=== PATIENT | male | born 1960 | race Caucasian/White ===

== ENCOUNTER → 2017-10-14 | Outpatient (CLI) | payer OTHER ==
[~2017-10-14] MED LIST: PRLSR20 PO; RANI150T3 PO
[2017-10-14 12:11] LABS: BASO % 0.6 %; BASO ABS # 0.03 K/uL (0-0.2); EOS % 4.8 %; EOS ABS # 0.23 K/uL (0-0.5); HEMATOCRIT 50.8 % (42-52); IG# 0.01 K/uL (0.00-0.02); LYMPH % 33.8 %; LYMPH ABS # 1.63 K/uL (1.2-3.4); MEAN CELL VOLUME 107.2 fL (80-100); MEAN CORPUSCULAR HGB CONC 35.4 g/dl (32-36); MEAN PLATELET VOLUME 9.7 fL (7.4-10.4); MONO % 11.2 %; MONO ABS # 0.54 K/uL (0.11-0.59); NEUT % 49.4 %; NEUT ABS # 2.38 K/uL (1.4-6.5); PLATELET COUNT 281 K/uL (130-400); RED CELL DISTRIBUTION WIDTH CV 14.1 % (11.5-14.5); RED CELL DISTRIBUTION WIDTH SD 55.8 fL (36.4-46.3); WHITE BLOOD COUNT 4.82 K/uL (4.8-10.8)
[2017-10-14 12:31] LABS: ALBUMIN 3.6 gm/dl (3.4-5.0); ALT/SGPT 32 U/L (12-78); AST/SGOT 27 U/L (15-37); BLOOD UREA NITROGEN 6 mg/dl (7-18); CALCIUM 9.1 mg/dl (8.5-10.1); CARBON DIOXIDE 27 mmol/L (21-32); CREATININE 0.81 mg/dl (0.60-1.40); GLUCOSE 85 mg/dl (70-99); POTASSIUM 3.9 mmol/L (3.5-5.1); SODIUM 134 mmol/L (136-145)
[2017-10-14 12:36] LABS: ALKALINE PHOSPHATASE 81 U/L (45-117); CHOLESTEROL 182 mg/dl (0-200); LDL CHOLESTEROL CALCULATED 98 mg/dl; TOTAL PROTEIN 7.7 gm/dl (6.4-8.2)
== END | disposition home or self-care (01) ==
LOC: C.LABBFT 07:29
PROVIDERS: ATTEND Nurse Practitioner
DX: Z13.220 Encounter for screening for lipoid disorders (principal); K21.9 Gastro-esophageal reflux disease without esophagitis; D53.9 Nutritional anemia, unspecified; Z12.5 Encounter for screening for malignant neoplasm of prostate

== ENCOUNTER 2023-10-26 16:46 | Observation (INO) ==
--- NOTE | 2023-10-26 16:57 | ED Triage Note ---
Date of Service October 26, 2023 Provider in Triage Author: Raine Mejias History of Present Illness This patient was briefly evaluated while in triage. An abbreviated physical exam was performed. This patient is a 63-year-old Male who presents to the ED for evaluation of left foot wound. Reports wound on bottom on foot for last 3 weeks, unsure how he got the wound. Thought fungal and was using cream without resolution. Eval by PCP and referred here. Notes redness, warmth, swelling, drainage. Denies fevers. Denies h/o DM, he is a smoker. No recent abx. Physical Exam Constitutional: alert and oriented x3. no acute distress. HEENT: normocephalic, atraumatic. normal conjunctiva.PERRLA. EOM's grossly intact. Respiratory: equal chest rise. normal respiratory effort, no accessory muscle use. Cardiovascular: normal heart sounds without murmur. regular rate and rhythm. MSK: moves all 4 extremities spontaneously Psych:appropriate mood and affect. Initial orders for labs and / or imaging were placed and patient was placed in the waiting area until a bed is available. Please see further documentation for the full ED course.
--- NOTE | 2023-10-26 17:40 | XRay Report ---
XR foot LT min 3V routine CLINICAL HISTORY: plantar wound TECHNIQUE: 3 views of the left foot were obtained. Comparison: None available at the time of this dictation. FINDINGS: No fractures are present. The joint spaces are well preserved. Soft tissue swelling is seen about the foot. IMPRESSION: Soft tissue swelling without erosions to suggest osteomyelitis. ACT 112: Negative or not required by law. Electronically signed by: Collin Bush M.D. 10/26/2023 5:39 PM
[2023-10-26 17:50] LABS: Basophils # (auto) 0.03 K/uL (0.00-0.20); Basophils % (auto) 0.4 %; Eosinophils # (auto) 0.16 K/uL (0.00-0.50); Eosinophils % (auto) 2.2 %; Hematocrit (blood only) 43.8 % (42.0-52.0); Hemoglobin 14.7 g/dl (14.0-18.0); Immature Granulocytes # (auto) 0.01 K/uL (0.01-0.20); Immature Granulocytes % (auto) 0.1 %; Lymphocytes # (auto) 1.76 K/uL (1.20-3.40); Lymphocytes % (auto) 24.3 %; Mean Corpuscular Hemoglobin 34.6 pg (25.0-34.0); Mean Corpuscular Hgb Conc 33.6 g/dL (32.0-36.0); Mean Corpuscular Volume 103.1 fL (80.0-100.0); Mean Platelet Volume 9.1 fL (9.4-12.4); Monocytes % (auto) 8.3 %; Neutrophils # (auto) 4.69 K/uL (1.40-6.50); Neutrophils % (auto) 64.7 %; Platelet Count 345 K/uL (130-400); RDW Standard Deviation 53.7 fL (36.4-46.3); Red Blood Count 4.25 M/uL (4.70-6.10); White Blood Count 7.25 K/ul (4.8-10.8)
[2023-10-26 18:09] LABS: BUN Creatinine Ratio 12.9 (10-20); C Reactive Protein 1.13 mg/dl (0-0.5); Calcium 9.4 mg/dl (8.6-10.3); Creatinine Clr Calc Pharmacy 91.1 ml/min; Est GFR (African American) 108.2 ml/min; Est GFR (Non-African American) 93.4 ml/min
[2023-10-26] MEDS ORDERED: VANCOMYCIN CONSULT ACTIVE PRN ×3 (18:30→21:16)
--- NOTE | 2023-10-26 18:30 | Emergency Department Note ---
History of Present Illness General Chief complaint: Referred by Doctor Time Seen by Provider: 10/26/23 18:19 History of Present Illness Maximum Pain Intensity: 10 63-year-old male presents emergency department with referral by his physician for a foot infection. 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 Patient states the past week it started itching the area he did put powder to the plantar surface and it started to drain and smell. Patient is not a diabetic. Patient did go to his primary care physician's office today's and noticed that it being and was sent for further evaluation for foot infection. Patient denies fever states some swelling of his left ankle. There are no other complaints. He is not currently on antibiotics. There are no other mitigating or alleviating factors. There is no trauma. Home Medications Medication Instructions Recorded Confirmed Type aspirin 81 mg tablet,delayed 81 mg PO DAILY 05/29/19 10/04/23 History release (Adult Low Dose Aspirin) atorvastatin 80 mg tablet 80 mg PO HS #90 tabs 05/04/23 10/04/23 Rx losartan 100 mg tablet 100 mg PO DAILY #30 tabs 05/04/23 10/04/23 Rx pantoprazole 40 mg tablet,delayed 40 mg PO DAILY #30 tabs 05/27/23 10/04/23 Rx release metoprolol succinate 50 mg 50 mg PO DAILY #30 tabs 06/07/23 10/04/23 Rx tablet,extended release 24 hr clopidogrel 75 mg tablet (Plavix) 75 mg PO DAILY #30 tabs 07/05/23 10/04/23 Rx Allergies Allergy/AdvReac Type Severity Reaction Status Date / Time No Known Allergies Allergy Unknown Verified 10/26/23 15:32 Past Med/Surg History Medical History Dyslipidemia CVA (cerebral vascular accident) Surgical History H/O hand surgery Family History Mother Hypertension Father Cerebral aneurysm Denies family history of Ovarian cancer Prostate cancer Myocardial infarction Breast cancer Colorectal cancer Social History Smoking Status: Current every day smoker Tobacco Type: Cigarettes Cigarettes Per Day: 20; Second Hand Exposure: Yes; Do You Dip or Chew Tobacco: No; Hx Alcohol Use: Yes Alcohol type: wine Alcohol Intake Frequency: 4 or More x per/Week Alcohol Intake Frequency Comment: red wine daily Hx Substance Use: No Preferred Language: Tajik Communication Ability: Effective Visual Impairment: No Limitations Hearing Ability: Normal Computer Help Desk Representative Required: No marital status: Current Living Situation: Spouse current occupational status: employed 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 Feels Safe at Home: Yes Childhood Exposure to Second-Hand Smoke: No Diet: regular caffeine: Yes Dental Care, Regularly: No Physical Activity Frequency: 5-6 Times per Week Physical Activity Frequency Comment: Physical occupation Seatbelt Use: always Sunscreen Use: No Assistive Devices: Glasses Review of Systems A total of 10 systems reviewed and were otherwise negative Musculoskeletal: + joint pain and + swelling Integumentary: + rash Physical Exam Vital Signs Vital Signs - 24 hr 10/26/23 16:52 Temperature 36.2 C L Temperature Source Temporal Artery Scan Pulse Rate 82 Respiratory Rate 14 Blood Pressure 150/84 H Blood Pressure Mean 106 Pulse Oximetry 97 Oxygen Delivery Method Room Air Sepsis New/Unexplained Change in Mental Status No Sepsis Action Taken by Nursing No Action Required GENERAL: Patient is awake alert in no acute distress patient is resting comfortably and showing no signs of anxiety EYES: The conjunctivae are clear. The pupils are round and reactive. EARS, NOSE, MOUTH AND THROAT: The nose is without any evidence of any deformity. Mucous membranes are moist. Tongue is midline. NECK: The neck is nontender and supple. RESPIRATORY: Normal respiratory effort is noted there is no evidence of wheezing rhonchi or rales CARDIOVASCULAR: Regular rate and rhythm noted there no murmurs rubs or gallops normal S1 normal S2. GASTROINTESTINAL: The abdomen is soft. Abdomen is nontender. BACK: No midline tenderness or or step-off noted range of motion in flexion extension as well as rotation no signs of muscle spasm noted MUSCULOSKELETAL/EXTREMITIES: There is no evidence of gross deformity full range of motion is noted in the hips and shoulders. Left lower extremity and foot exam as noted in the skin exam. Patient is neurovascularly intact distally the right foot and right lower extremity is normal in size SKIN: Left foot plantar surface there is a large area of open wound that is weeping and foul-smelling. There is edema to the foot and ankle with mild lymphangitis proximally. There are no petechiae, pallor or cyanosis noted. NEUROLOGIC: Patient is awake alert and oriented x3 strength is symmetric Course Reevaluation(s) Reevaluation #1: Patient was started on IV antibiotics. Time: 18:55 Consultations Consultation #1: Case was discussed with the [facility] Hospitalist for admission Time: 18:45 Medical Decision Making Medical Records Attestation: I reviewed the patient's medical records. Home Medications Current Medication List: was personally reviewed by me Laboratory Data Attestation: I reviewed the patient's lab results. Labs interpreted by me are unremarkable 10/26/23 17:22 10/26/23 17:22 Lab Results 10/26/23 Range/Units 17:22 WBC 7.25 (4.8-10.8) K/ul RBC 4.25 L (4.70-6.10) M/uL Hgb 14.7 (14.0-18.0) g/dl Hct 43.8 (42.0-52.0) % MCV 103.1 H (80.0-100.0) fL MCH 34.6 H (25.0-34.0) pg MCHC 33.6 (32.0-36.0) g/dL RDW Std Deviation 53.7 H (36.4-46.3) fL RDW Coeff of Félix 14.0 (11.5-14.5) % Plt Count 345 (130-400) K/uL MPV 9.1 L (9.4-12.4) fL Immature Gran % (Auto) 0.1 % Neut % (Auto) 64.7 % Lymph % (Auto) 24.3 % [place] % (Auto) 8.3 % Eos % (Auto) 2.2 % Baso % (Auto) 0.4 % Neut # (Auto) 4.69 (1.40-6.50) K/uL Lymph # (Auto) 1.76 (1.20-3.40) K/uL [place] # (Auto) 0.60 H (0.11-0.59) K/uL Eos # (Auto) 0.16 (0.00-0.50) K/uL Baso # (Auto) 0.03 (0.00-0.20) K/uL Immature Gran # (Auto) 0.01 (0.01-0.20) K/uL ESR 38 H (0-20) mm/hr Sodium 138 (136-145) mmol/L Potassium 4.0 (3.5-5.1) mmol/L Chloride 104 (98-107) mmol/L Carbon Dioxide 28 (21-32) mmol/L Anion Gap 6 (3-11) BUN 11 (6-23) mg/dl Creatinine 0.85 (0.6-1.4) mg/dl Est Cr Clr Drug Dosing 91.1 ml/min Est GFR ( Amer) 108.2 ml/min Est GFR (Non-Af Amer) 93.4 ml/min BUN/Creatinine Ratio 12.9 (10-20) Glucose 99 (70-99(Fasting)) mg/dl Calcium 9.4 (8.6-10.3) mg/dl C-Reactive Protein 1.13 H (0-0.5) mg/dl Imaging Data My Impression: Left foot x-rays interpreted by me negative for fracture or osteomyelitis Radiologist's Impression: Foot X-Ray 10/26/23 16:57 XR foot LT min 3V routine CLINICAL HISTORY: plantar wound TECHNIQUE: 3 views of the left foot were obtained. Comparison: None available at the time of this dictation. FINDINGS: No fractures are present. The joint spaces are well preserved. Soft tissue swelling is seen about the foot. IMPRESSION: Soft tissue swelling without erosions to suggest osteomyelitis. ACT 112: Negative or not required by law. Electronically signed by: Collin Bush M.D. 10/26/2023 5:39 PM MDM Narrative Medical decision making differential diagnosis includes foot ulcer, foot infection, cellulitis, osteomyelitis Plan is to check labs, foot x-rays, these labs were started and the provider in triage process Patient was found to have a foot infection on my examination, patient was started on IV antibiotics Case was discussed with the [facility] hospitalist for admission for foot infection and cellulitis Impression & Plan Left foot infection Discharge Plan Visit Data Chief Complaint: Referred by Doctor ED Provider: Royer Jacobs Discharge Problem: Left foot infection Patient Disposition: Admitted As Inpatient Forms Stand Alone Forms: [facility] Prescriptions Prescriptions: No Action aspirin [Adult Low Dose Aspirin] 81 mg tablet,delayed release (DR/EC) 81 mg PO DAILY losartan 100 mg tablet 100 mg PO DAILY Qty: 30 11RF atorvastatin 80 mg tablet 80 mg PO HS Qty: 90 3RF pantoprazole 40 mg tablet,delayed release (DR/EC) 40 mg PO DAILY Qty: 30 11RF metoprolol succinate 50 mg tablet extended release 24 hr 50 mg PO DAILY Qty: 30 11RF clopidogrel [Plavix] 75 mg tablet 75 mg PO DAILY Qty: 30 11RF Referrals Referrals: Chelsea Reddy CRNP [Primary Care Provider] -
--- NOTE | 2023-10-26 18:49 | History & Physical Report ---
Date of Service October 26, 2023 Assessment & Plan (1) Left foot infection: Plan: Worsening infection/pain on the sole of the left foot x 3.5 weeks No leukocytosis; afebrile Left foot x-ray revealed soft tissue swelling without erosions to suggest osteomyelitis ESR elevated at 38; CRP elevated at 1.13 Procalcitonin WNL Blood cultures ordered, pending IV Vancomycin + Rocephin with transition to oral abx Continue vancomycin at 15mg/kg IV q12h Follow blood cx Daily wound care Wound care nurse consulted Acetaminophen 650mg p.o. q6h as needed for pain 1-3 Dilaudid 0.5-1.0mg IV q4h as needed for breakthrough pain A.m. CBC, BMP, CRP (2) Hypertension: Plan: Continue metoprolol, losartan (3) Dyslipidemia: Plan: Continue atorvastatin (4) Acid reflux: Plan: Continue pantoprazole (5) Tobacco use: Plan: Current everyday tobacco cigarette smoker; 1 PPD Patient declines nicotine patch while inpatient (6) Alcohol use: Plan: Patient reports that he drinks 3-4 glasses of wine per day; last drink the evening of 10/24 He denies hx of of alcohol withdrawal or seizures Plan Disposition: Obs -admit to [facility] Full code Regular diet VTE PPx: Lovenox 40 mg SQ q24h History of Present Illness Chief Complaint: Left foot pain/infection Primary Care Provider: VALE Wang Timur is a pleasant 63-year-old male with PMH of dyslipidemia, HTN, tobacco use, alcohol use, GERD, and macrocytic anemia. Presented for a worsening left foot pain/infection on the sole of his foot x 3.5 weeks. He rates the pain 10/10 at present, and characterizes it as a "burning, throbbing" pain that is constant. 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 Patient reports he has been applying a tinactin cream and powder to his foot without relief. He also notes that there has been increased swelling and erythema over the past week. He is not taking any additional pain medications. No recent change in medications, but he does note that he only took his heartburn medication this morning. He does note he had a recent stomach flu 3-4 weeks ago, but symptoms have resolved. Patient is mildly hypertensive at 150/84 at time of admission; vitals otherwise stable. ED course: Vancomycin 1750 mg IV Rocephin 2000 mg IV ROS: Patient endorses burning pain in the sole of his left foot. Patient denies fever, chills, night sweats, dizziness, lightheadedness, MANZO, chest pain, SOB, abdominal pain, recent N/V/D, urinary symptoms, burning with urination, blood in the urine or stool, or numbness/tingling in lower extremities bilaterally. Allergies Allergy/AdvReac Type Severity Reaction Status Date / Time No Known Allergies Allergy Unknown Verified 10/26/23 18:59 Home Medications Medication Instructions Recorded Confirmed Type aspirin 81 mg tablet,delayed 81 mg PO DAILY 05/29/19 10/26/23 History release (Adult Low Dose Aspirin) atorvastatin 80 mg tablet 80 mg PO HS #90 tabs 05/04/23 10/26/23 Rx losartan 100 mg tablet 100 mg PO DAILY #30 tabs 05/04/23 10/26/23 Rx pantoprazole 40 mg tablet,delayed 40 mg PO DAILY #30 tabs 05/27/23 10/26/23 Rx release metoprolol succinate 50 mg 50 mg PO DAILY #30 tabs 06/07/23 10/26/23 Rx tablet,extended release 24 hr clopidogrel 75 mg tablet (Plavix) 75 mg PO DAILY #30 tabs 07/05/23 10/26/23 Rx Past Med/Surg History Medical History (Updated 10/26/23 @ 19:16 by Damian Ruano PA-C) Alcohol use Tobacco use Dyslipidemia CVA (cerebral vascular accident) Surgical History H/O hand surgery Family History Mother Hypertension Father Cerebral aneurysm Denies family history of Ovarian cancer Prostate cancer Myocardial infarction Breast cancer Colorectal cancer Social History Smoking Status: Current every day smoker Tobacco Type: Cigarettes Cigarettes Per Day: 1 pack; Second Hand Exposure: No; Do You Dip or Chew Tobacco: No; Tobacco Cessation Education Requested by Patient: No Hx Alcohol Use: Yes Alcohol type: wine Alcohol Intake Frequency: 4 or More x per/Week Alcohol Intake Frequency Comment: red wine daily Hx Substance Use: No Preferred Language: Honduran Communication Ability: Effective Visual Impairment: No Limitations Hearing Ability: Normal Scout Executive Required: No Beliefs That Will Affect Care: None marital status: Current Living Situation: Spouse current occupational status: employed 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 Other Information That Helps Us Care for You: No Feels Safe at Home: Yes Safety Concerns: Feels Safe At This Time Childhood Exposure to Second-Hand Smoke: No Diet: regular caffeine: Yes Dental Care, Regularly: No Physical Activity Frequency: 5-6 Times per Week Physical Activity Frequency Comment: Physical occupation Seatbelt Use: always Sunscreen Use: No Assistive Devices: None Review of Systems 2 Review of Systems: See HPI above Physical Exam 2 Physical Exam: General: Moderate physical distress secondary to left foot pain; pleasant affect; non-toxic appearing; well-nourished; cooperative; SpO2 97% on RA HEENT: normocephalic, atraumatic; no scleral icterus; PERRLA; vision and hearing grossly intact Neck: supple; no lymphadenopathy; trachea midline Skin: warm, dry without signs of tenting; no cyanosis; no rashes, bruising, lesions, or erythema noted CV: chest wall NTP; RRR; S1/S2 normal; no murmurs/rubs/gallops; pulses intact and symmetric at radial, DP, and PT Lungs: no acute respiratory distress; symmetrical chest wall expansion; clear breath sounds across all lung freitas w/o adventitious sounds; no wheezing ABD: Soft, NTP; BS present Left foot: Malodorous, with purulent drainage from the sole of the foot and toes; dorsal aspect of foot is warm to touch (see photo below) MSK: no tics or fasciculations; no edema noted in the LEs b/l, nonerythematous Neuro: A&Ox3; normal mood and affect; fluent speech; no focal deficits; sensation grossly intact in the LEs b/l Results & Data Results & Data Vital Signs (Past 12 Hours) Vital Signs Temp Pulse Resp BP Pulse Ox O2 Del Method 10/26/23 16:52 36.2 C L 82 14 150/84 H 97 Room Air Laboratory Results Abnormal lab results 10/26/23 Range/Units 17:22 RBC 4.25 L (4.70-6.10) M/uL MCV 103.1 H (80.0-100.0) fL MCH 34.6 H (25.0-34.0) pg RDW Std Deviation 53.7 H (36.4-46.3) fL MPV 9.1 L (9.4-12.4) fL [place] # (Auto) 0.60 H (0.11-0.59) K/uL ESR 38 H (0-20) mm/hr C-Reactive Protein 1.13 H (0-0.5) mg/dl Diagnostic Findings Foot X-Ray 10/26/23 16:57 XR foot LT min 3V routine CLINICAL HISTORY: plantar wound TECHNIQUE: 3 views of the left foot were obtained. Comparison: None available at the time of this dictation. FINDINGS: No fractures are present. The joint spaces are well preserved. Soft tissue swelling is seen about the foot. IMPRESSION: Soft tissue swelling without erosions to suggest osteomyelitis. ACT 112: Negative or not required by law. Electronically signed by: Collin Bush M.D. 10/26/2023 5:39 PM Code Status & VTE Plan Code Status Full code VTE Prophylaxis Plan VTE Prophylaxis will be ordered: Yes Supervising Physician Co-Signing Physician Notes I personally saw and examined the patient. I independently reviewed the labs, imaging, problem list, medication list, past medical history and family history. I verified all adams points and agree with Damian Ruano PA-C with the following exceptions and/or additions: 63 year old male presents to the ER with left foot infection getting progressively worse over the last 3 weeks with severe 10/10 pain O/E HS RRR, no murmurs, Chest CTAB, Abdo SNT, erythema and swelling surrounding skin break down on sole of left foot A/P Left foot cellulitis - Vancomycin + ceftriaxone, follow up blood cultures, consult podiatry and wound care. Appearance is somewhat fungal and will defer to podiatry regarding best care for this PG Care Time/CCT Total # of Minutes Spent Total Time Spent with Patient: Total time spent is greater than 50% in coordination of care (as documented) at patient's floor/unit and/or counseling patient: Coding [place] [address] INT INP/OBS CARE 2/55MIN Patient Type Established Medical Decision Making Moderate Complexity Diagnoses Left foot infection L08.9 Hypertension I10 Dyslipidemia E78.5 Acid reflux K21.9 Tobacco use Z72.0 Alcohol use Z78.9
[2023-10-26] MEDS: cefTRIAXone SODIUM 2,000 MG/50 ML BAG IV STA (19:24)
[2023-10-26] MEDS: ACETAMINOPHEN 325 MG TAB PO STA (19:25)
[2023-10-26] MEDS: VANCOMYCIN HCL 1,750 MG in SODIUM CHLORIDE 0.9% 500 ML IV ONE (20:32)
[2023-10-26] MEDS ORDERED: ACETAMINOPHEN 325 MG TAB PO PRN (21:16)
[2023-10-26] MEDS: HYDROmorphone INJ 1 MG/ML SYRINGE IV PRN (21:34)
--- NOTE | 2023-10-26 21:34 | Pharmacy Report ---
Pharmacy PK ABX Note - Date of Service October 26, 2023 - Assessment and Plan Assessment 63 year old M receiving vancomycin for treatment of L foot cellulitis. Pertinent microbiologic data includes: blood cultures pending Plan Vancomycin * Loading dose: 1750 mg IV x 1 * Maintenance dose: 1000 mg IV every 12 hours * Regimen is predicted to achieve target AUC/ALEISHA of 400-600 mg/L.hr * Random level ordered for: 10/27 AM Pharmacy will continue to follow and will adjust dose/frequency as necessary. Thank you. Pharmacy has transitioned to AUC monitoring for vancomycin. AUC/ALEISHA is the preferred PK/PD target and is associated with decreased risk of nephrotoxicity compared to traditional trough targets.
[2023-10-26] MEDS: ENOXAPARIN INJ 40 MG/0.4 ML SYR SQ SCH (22:10)
[2023-10-26] MEDS: ATORVASTATIN 40 MG TAB PO SCH (22:10)
[2023-10-27] MEDS: HYDROmorphone INJ 0.5 MG/0.5 ML SYR IV PRN (05:36)
[2023-10-27 06:16] LABS: Basophils # (auto) 0.03 K/uL (0.00-0.20); Basophils % (auto) 0.4 %; Eosinophils # (auto) 0.21 K/uL (0.00-0.50); Eosinophils % (auto) 3.1 %; Hematocrit (blood only) 44.6 % (42.0-52.0); Immature Granulocytes # (auto) 0.02 K/uL (0.01-0.20); Immature Granulocytes % (auto) 0.3 %; Lymphocytes # (auto) 1.91 K/uL (1.20-3.40); Lymphocytes % (auto) 28.2 %; Mean Corpuscular Hemoglobin 34.5 pg (25.0-34.0); Mean Corpuscular Hgb Conc 33.6 g/dL (32.0-36.0); Mean Corpuscular Volume 102.5 fL (80.0-100.0); Mean Platelet Volume 9.2 fL (9.4-12.4); Monocytes % (auto) 8.9 %; Neutrophils % (auto) 59.1 %; Platelet Count 332 K/uL (130-400); RDW Coefficient of Variation 13.8 % (11.5-14.5); RDW Standard Deviation 52.6 fL (36.4-46.3); Red Blood Count 4.35 M/uL (4.70-6.10); White Blood Count 6.77 K/ul (4.8-10.8)
[2023-10-27 06:30] LABS: BUN Creatinine Ratio 12.7 (10-20); C Reactive Protein 0.94 mg/dl (0-0.5); Calcium 9.1 mg/dl (8.6-10.3); Creatinine Clr Calc Pharmacy 106.9 ml/min; Est GFR (African American) 116.5 ml/min; Est GFR (Non-African American) 100.6 ml/min; Potassium 4.1 mmol/L (3.5-5.1)
[2023-10-27] MEDS ORDERED: VANCOMYCIN HCL 1,250 MG in SODIUM CHLORIDE 0.9% 500 ML IV SCH (08:00)
[2023-10-27] MEDS: PANTOprazole 40 MG TAB PO SCH (08:38)
[2023-10-27] MEDS: METOPROLOL SUCC 50MG EXT REL TAB PO SCH (08:38)
[2023-10-27] MEDS: LOSARTAN POTASSIUM 50 MG TAB PO SCH (08:39)
[2023-10-27] MEDS: CLOPIDOGREL BISULFATE 75 MG TAB PO SCH (08:39)
[2023-10-27] MEDS: VANCOMYCIN HCL 1,000 MG in SODIUM CHLORIDE 0.9% 250 ML IV SCH (08:41)
[2023-10-27] MEDS ORDERED: ASPIRIN 81 MG ECTAB PO SCH (09:00)
--- NOTE | 2023-10-27 09:47 | Pharmacy Report ---
Pharmacy PK ABX Note - Date of Service October 27, 2023 - Assessment and Plan Assessment : Serum creatinine slightly improved today, [employer] predicting low in goal range and with uncertainty that dosing will be therapeutic. Will increase dose slightly for better probability of goal range attainment. Continue with level tomorrow AM to aide with dosing. 10/25: 63 year old M receiving vancomycin for treatment of L foot cellulitis. Pertinent microbiologic data includes: blood cultures pending Plan Vancomycin * Loading dose: 1750 mg IV x 1 * Maintenance dose: increase to 1200 mg IV every 12 hours * Regimen is predicted to achieve target AUC/ALEISHA of 400-600 mg/L.hr * Random level ordered for: 10/27 AM Pharmacy will continue to follow and will adjust dose/frequency as necessary. Thank you. Pharmacy has transitioned to AUC monitoring for vancomycin. AUC/ALEISHA is the preferred PK/PD target and is associated with decreased risk of nephrotoxicity compared to traditional trough targets.
--- NOTE | 2023-10-27 15:28 | Hospitalist Progress Note ---
Date of Service October 27, 2023 Assessment & Plan (1) Ulcer of left foot: Plan: present x 3-4 weeks. superficial. no deep infection per podiatry. x-rays w/o signs of osteomyelitis. currently on vanco/rocephin. can d/c - agree with 2 weeks of augmentin as advised by Dr Yusuf. appreciate his consult. appreciate wound care consult as well. 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 (7) Alcohol use: Plan: Patient reports that he drinks 3-4 glasses of wine per day; last drink the evening of 10/24 He denies hx of of alcohol withdrawal or seizures Plan VTE PPx: Lovenox 40 mg SQ q24h likely home tomorrow Admission and Anticipated Discharge Date Admission Date: October 26, 2023 Subjective only complaint is that of L foot pain otherwise feeling well denies any injury that led to his L foot ulcer 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 drinking well Review of Systems Review of Systems: gen - no fevers or chills cv - no chest pain pulm - no dyspnea Physical Exam Physical Exam: gen - NAD, looks well mouth - mmm neck - no jvd heart - rrr, s1 s2, no murmur lungs - CTA b/l abd - soft NT ND BS+ vascular - pulses b/l feet 2+ ext - L foot wrapped in dressings - I did not remove such; right foot wnl; no edema Results & Data Results & Data Vital Signs (Past 12 Hours) Vital Signs Temp Pulse Resp BP Pulse Ox O2 Del Method 10/27/23 14:39 36.5 C 72 16 142/87 H 95 Room Air 10/27/23 07:28 36.5 C 71 16 133/87 96 Room Air Laboratory Results Laboratory Results - last 24 hr 10/26/23 10/27/23 17:22 05:34 WBC 7.25 6.77 RBC 4.25 L 4.35 L Hgb 14.7 15.0 Hct 43.8 44.6 MCV 103.1 H 102.5 H MCH 34.6 H 34.5 H MCHC 33.6 33.6 RDW Std Deviation 53.7 H 52.6 H RDW Coeff of Félix 14.0 13.8 Plt Count 345 332 MPV 9.1 L 9.2 L Immature Gran % (Auto) 0.1 0.3 Neut % (Auto) 64.7 59.1 Lymph % (Auto) 24.3 28.2 [place] % (Auto) 8.3 8.9 Eos % (Auto) 2.2 3.1 Baso % (Auto) 0.4 0.4 Neut # (Auto) 4.69 4.00 Lymph # (Auto) 1.76 1.91 [place] # (Auto) 0.60 H 0.60 H Eos # (Auto) 0.16 0.21 Baso # (Auto) 0.03 0.03 Immature Gran # (Auto) 0.01 0.02 ESR 38 H Sodium 138 134 L Potassium 4.0 4.1 Chloride 104 103 Carbon Dioxide 28 25 Anion Gap 6 6 BUN 11 9 Creatinine 0.85 0.71 Est Cr Clr Drug Dosing 91.1 106.9 Est GFR ( Amer) 108.2 116.5 Est GFR (Non-Af Amer) 93.4 100.6 BUN/Creatinine Ratio 12.9 12.7 Glucose 99 92 Calcium 9.4 9.1 C-Reactive Protein 1.13 H 0.94 H Procalcitonin < 0.02 PG Care Time/CCT Total # of Minutes Spent Total Time Spent with Patient: Total time spent is greater than 50% in coordination of care (as documented) at patient's floor/unit and/or counseling patient: Coding Level of Care Code 09419 SUB INP/OBS CARE 1/25MIN Diagnoses Ulcer of left foot L97.529 Left foot infection L08.9 Hypertension I10 Dyslipidemia E78.5 Acid reflux K21.9 Tobacco use Z72.0 Alcohol use Z78.9
[2023-10-27] MEDS: cefTRIAXone SODIUM 2,000 MG in DEXTROSE 5 % MINI-B 50 ML IV SCH (17:36)
[2023-10-27] MEDS: VANCOMYCIN HCL 1,250 MG in SODIUM CHLORIDE 0.9% 250 ML IV SCH (20:36)
[2023-10-27] MEDS: HYDROCODONE/ACETAMOPHEN 5/325MG TAB PO PRN (22:06)
--- NOTE | 2023-10-27 22:56 | Podiatry Consultation ---
Date of Consultation October 27, 2023 Assessment & Plan (1) Left foot infection: (2) Left foot pain: (3) Erythrasma: Plan patient was examined and evaluated. We discussed at length the etiology and treatment of his left foot infection. He is doing mostly well at this point with no deep abscess formation and no significant open wound requiring debridement. With the location of this wound, in the sulcus of the foot around the lesser digits, this is most likely an area through as or corynebacterium infection. He could benefit from topical antibiotics, that will also benefit from oral antibiotics and/or Betadine wet to dry dressings. he would like to be discharged home as soon as reasonable, and can do so with 2 weeks of oral antibiotics, likely Augmentin, and can benefit from 2 weeks of Erygel/topical erythromycin directly on the wound. He should continue to see wound care, which can be done either in our office outpatient or at the [facility] wound care center with the wound care team. His pain should be managed with both decreasing the infectious burden and ibuprofen or Tylenol [id number]. This wound should heal well with outpatient care, so from a foot and ankle standpoint could be discharged whenever he is stable otherwise. Thank you for the consult, we look forward to helping out with Mr. Guerrero in the future as well. History of Present Illness Reason for Consultation: Left forefoot pain/infection Attending Physician: Cornelius Cronin MD History of Present Illness patient was seen at his bedside. He states that he presented to the emergency department with worsening signs of local infection to the left forefoot. 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 He states that he noticed increasing pain along with drainage and wound formation. He presented to his primary care doctor outpatient who immediately sent him for emergency department admission to the hospital. He denies any systemic infection symptoms and is sitting in his bed eating his dinner comfortably. He has no systemic concerns but does have this pain that has limited his ability to work. He has not had a known history of other concerns to the foot and ankle. even though he has not been inpatient long, he is already eager to go home whenever possible. He denies any other recent medical history change. Allergies Allergy/AdvReac Type Severity Reaction Status Date / Time No Known Allergies Allergy Unknown Verified 10/26/23 18:59 Home Medications Medication Instructions Recorded Confirmed Type aspirin 81 mg tablet,delayed 81 mg PO DAILY 05/29/19 10/26/23 History release (Adult Low Dose Aspirin) atorvastatin 80 mg tablet 80 mg PO HS #90 tabs 05/04/23 10/26/23 Rx losartan 100 mg tablet 100 mg PO DAILY #30 tabs 05/04/23 10/26/23 Rx pantoprazole 40 mg tablet,delayed 40 mg PO DAILY #30 tabs 05/27/23 10/26/23 Rx release metoprolol succinate 50 mg 50 mg PO DAILY #30 tabs 06/07/23 10/26/23 Rx tablet,extended release 24 hr clopidogrel 75 mg tablet (Plavix) 75 mg PO DAILY #30 tabs 07/05/23 10/26/23 Rx Patient History Medical History Alcohol use Tobacco use Dyslipidemia CVA (cerebral vascular accident) Surgical History H/O hand surgery Family History Mother Hypertension Father Cerebral aneurysm Denies family history of Ovarian cancer Prostate cancer Myocardial infarction Breast cancer Colorectal cancer Social History Smoking Status: Current every day smoker Tobacco Type: Cigarettes Cigarettes Per Day: 1 pack; Second Hand Exposure: No; Do You Dip or Chew Tobacco: No; Tobacco Cessation Education Requested by Patient: No Hx Alcohol Use: Yes Alcohol type: wine Alcohol Intake Frequency: 4 or More x per/Week Alcohol Intake Frequency Comment: red wine daily Hx Substance Use: No Preferred Language: Dutch Communication Ability: Effective Visual Impairment: No Limitations Hearing Ability: Normal Court Of Appeals Judge Required: No Beliefs That Will Affect Care: None marital status: Current Living Situation: Spouse current occupational status: employed 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 Other Information That Helps Us Care for You: No Feels Safe at Home: Yes Safety Concerns: Feels Safe At This Time Childhood Exposure to Second-Hand Smoke: No Diet: regular caffeine: Yes Dental Care, Regularly: No Physical Activity Frequency: 5-6 Times per Week Physical Activity Frequency Comment: Physical occupation Seatbelt Use: always Sunscreen Use: No Assistive Devices: None Review of Systems Review of Systems: All systems reviewed & are unremarkable except as noted in HPI & below Constitutional: no fever, no chills and no problem reported Eyes: no problem reported Ear, Nose, Mouth, Throat: no problem reported Respiratory: no problem reported Cardiovascular: + edema; no chest pain Gastrointestinal: no problem reported Integumentary: + lesions, + non-healing lesions, + eryt mere and + dry skin Neurologic: + loss of sensation, + numbness and + pa resthesia; no gait abnormality and no generalized weakness Psychiatric: no problem reported Physical Exam Physical Exam: lower extremity focused exam: DP/PT pulses 2/4 bilaterally. CFT is brisk to the digits. Skin is supple and well-hydrated with mild evidence of atrophy to the skin and decreased hair growth overall. There is a superficial ulceration underlying the left forefoot, consistent with infected interdigital macerations and a possible corynebacterium infection or erythrasma. No JOSE ascending cellulitis is noted. There is edema to the left lower extremity, consistent with this ulceration. Further, there is pain on palpation and dressing change of this ulcer, consistent with his intact pain sensation overall. Range of motion is limited, consistent with his age, though no specific underlying arthritic changes are noted. This is more to do with his age-related ankle equinus and semirigid hammertoe deformities.. Constitutional: WD/WN, vitals as above well developed and well nourished; no acute distress Eyes: PERRL, conjunctivae normal, anicteric sclerae ENMT: external ear and nose normal, oropharynx normal Neck: trachea midline, no thyromegaly Respiratory: normal respiratory effort, lungs clear to auscultation Cardiovascular: Rate/Rhythm: regular rate and regular rhythm Vessels: posterior tibial pulses present and dorsalis pedis pulses present Extremities: normal capillary refill Chest (Breasts): Chest: normal inspection of chest Gastrointestinal (Abdomen): Inspection/Auscultation: abdomen normal to inspection Musculoskeletal: no cyanosis or clubbing, extremities motor strength 5/5 Head/Neck/Chest: normocephalic and head atraumatic Extremities: normal strength, normal muscle tone and no muscle atrophy Skin: + lesion, + wound, normal skin elasticit y and + nails dystrophic Trauma: no evidence of skin trauma Neurologic: moves all extremities; + abnormal touch/pain/proprioception and + abnormal sensation to monofilament Psychiatric: A+Ox3, euthymic affect Results & Data Vital Signs (Past 12 Hours) Vital Signs Temp Pulse Resp BP BP Pulse Ox O2 Del Method 10/27/23 20:33 36.7 C 67 16 131/79 93 Room Air 10/27/23 14:39 36.5 C 72 16 142/87 H 95 Room Air
[2023-10-28 06:14] LABS: Creatinine Clr Calc Pharmacy 89.3 ml/min; Est GFR (African American) 108.2 ml/min; Est GFR (Non-African American) 93.4 ml/min
[2023-10-28] MEDS: VANCOMYCIN LEVEL ONE (08:53)
--- NOTE | 2023-10-28 09:58 | Pharmacy Report ---
Pharmacy PK ABX Note - Date of Service October 28, 2023 - Assessment and Plan Assessment 10/27: Vancomycin level reviewed, predicted to acheive goal AUC/ALEISHA, continue current dosing. 10/26: Serum creatinine slightly improved today, [employer] predicting low in goal range and with uncertainty that dosing will be therapeutic. Will increase dose slightly for better probability of goal range attainment. Continue with level tomorrow AM to aide with dosing. 10/25: 63 year old M receiving vancomycin for treatment of L foot cellulitis. Pertinent microbiologic data includes: blood cultures pending Plan Vancomycin * Maintenance dose: 1250 mg IV every 12 hours * Regimen is predicted to achieve target AUC/ALEISHA of 400-600 mg/L.hr * Random level to be ordered if continued beyond 48 hours Pharmacy will continue to follow and will adjust dose/frequency as necessary. Thank you. Pharmacy has transitioned to AUC monitoring for vancomycin. AUC/ALEISHA is the preferred PK/PD target and is associated with decreased risk of nephrotoxicity compared to traditional trough targets.
--- NOTE | 2023-10-28 12:35 | Discharge Summary ---
Date of Service October 28, 2023 Admission HPI Per Admitting Provider Timur is a pleasant 63-year-old male with PMH of dyslipidemia, HTN, tobacco use, alcohol use, GERD, and macrocytic anemia. Presented for a worsening left foot pain/infection on the sole of his foot x 3.5 weeks. He rates the pain 10/10 at present, and characterizes it as a "burning, throbbing" pain that is constant. 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 Patient reports he has been applying a tinactin cream and powder to his foot without relief. He also notes that there has been increased swelling and erythema over the past week. He is not taking any additional pain medications. No recent change in medications, but he does note that he only took his heartburn medication this morning. He does note he had a recent stomach flu 3-4 weeks ago, but symptoms have resolved. Patient is mildly hypertensive at 150/84 at time of admission; vitals otherwise stable. ED course: Vancomycin 1750 mg IV Rocephin 2000 mg IV ROS: Patient endorses burning pain in the sole of his left foot. Patient denies fever, chills, night sweats, dizziness, lightheadedness, MANZO, chest pain, SOB, abdominal pain, recent N/V/D, urinary symptoms, burning with urination, blood in the urine or stool, or numbness/tingling in lower extremities bilaterally. Discharge Exam gen - NAD, looks well mouth - mmm neck - no jvd heart - rrr, s1 s2, no murmur lungs - CTA b/l abd - soft NT ND BS+ vascular - pulses b/l feet 2+ ext - L foot wrapped in dressings - I did not remove such; right foot wnl; no edema Discharge Data Allergies Allergy/AdvReac Type Severity Reaction Status Date / Time No Known Allergies Allergy Unknown Verified 10/26/23 18:59 Consultations 10/26/23 18:38 ED Decision to Admit Stat 10/26/23 22:31 Consult Podiatry Routine Hospital Course (1) Ulcer of left foot: present x 3-4 weeks. superficial. no deep infection per podiatry. x-rays w/o signs of osteomyelitis. currently on vanco/rocephin. can d/c - agree with 2 weeks of augmentin as advised by Dr Yusuf. appreciate his consult. appreciate wound care consult as well. 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 (7) Alcohol use: Patient reports that he drinks 3-4 glasses of wine per day; last drink the evening of 10/24 He denies hx of of alcohol withdrawal or seizures Plan VTE PPx: Lovenox 40 mg SQ q24h likely home tomorrow Discharge Plan Discharge Items Patient Disposition: Home - Self-Care Reason For Visit: LEFT FOOT INFECTION Discharge Diagnosis: Left foot ulcer with infection Activity: Per Instructions section Driving/Machine Use: If possible please avoid driving until you see the Wound Care Center Weightbearing: Full weightbearing Weightbearing Comment: weight bear as tolerated with a good tennis shoe or the shoe provided Non-emergency contact: Primary Care Provider and Specialist Call non-emergency contact if: you have any medication questions, your symptoms worsen, your pain is not controlled, you have a fever, your wound has increased redness, your wound has increased drainage and your wound pain has increased Follow-up/Referrals: Chelsea Reddy CRNP [Primary Care Provider] - 11/01/23 9:00 am (1-2 weeks ) Eri Lyn CRNP [Nurse Practitioner] - 11/03/23 8:00 am Deondre Yusuf DPM [Physician] - 11/12/23 10:00 am Diet: Heart Healthy Addtl Attending Provider Instructions: Mr Guerrero, You were hospitalized due to having an ulcer of the left foot. There likely was an element of infection of this ulcer. You were seen by podiatry as well as the wound care team. Recommendations - 1. antibiotics - * amoxicillin-clavulanate 875mg twice daily x 14 days, first dose TONIGHT * most common side effect - diarrhea * if you wish you can take an [id number] probiotic supplement each day while on the amoxicillin * also eat a serving or two of yogurt each day 2. activity - * you can weight bear as tolerated on the left foot/leg * be sure to wear a supportive walking or running shoe on the left foot especially when you leave your home * if the dressings are too bulky to fit your foot in a standard tennis/walking shoe then use the shoe provided at the hospital 3. dressing changes to left foot ulcer - Instructions: Do your first dressing change tomorrow on 10/29/23. The Aquacel Ag wound material can be purchased on-line. You can get it through [employer] and other websites. We have provided you some extra Aquacel ag to use for the next few days. You can also go to a medical supply store such as [employer] and ask if they can order the Aquacel Ag for you. The "ABD" and kerlix dressings are found at most pharmacies including [facility], [facility], [facility] [employer], etc. 4. I would recommend no driving until you see the wound care center. 5. Please talk to your family doctor about ways in which you can successfully quit smoking. 6. showering - try to keep the left foot dressings covered/dry/intact during the shower. 7. pain - for severe pain you may take hydrocodone-acetaminophen - 1 tablet every 6 hours as needed. This is a narcotic pain killer - it will cause constipation, and can impair your senses - thus, no driving while taking this medication and NO alcohol use. Note that hydrocodone has tylenol in it; therefore do not take extra aapy-fcy-ngoevdv tylenol if you decide to take the hydrocodone. Follow-up - see separate section Return to [facility] if - * you have fevers over 100 degrees * you develop severe diarrhea * you have worsening pain, redness, swelling, drainage, etc from the left foot wound * any other concerns It was our pleasure to care for you! Pending Studies at Discharge: No Stand-Alone Forms: My [facility], Smoking Cessation Medications and DC Order Prescriptions: New hydrocodone-acetaminophen 5-325 mg Tablet 1 tab PO Q6H PRN (Reason: pain) Qty: 10 0RF amoxicillin-pot clavulanate 875-125 mg tablet 1 tab PO BID 14 Days Qty: 28 0RF Continued aspirin [Adult Low Dose Aspirin] 81 mg tablet,delayed release (DR/EC) 81 mg PO DAILY Rx Instructions: PER PT "STOPPED ABOUT 2 WKS AGO PER MD ORDER". losartan 100 mg tablet 100 mg PO DAILY Qty: 30 11RF atorvastatin 80 mg tablet 80 mg PO HS Qty: 90 3RF pantoprazole 40 mg tablet,delayed release (DR/EC) 40 mg PO DAILY Qty: 30 11RF Rx Instructions: PER PT "RAN OUT, JUST PICKED UP AT PHARMACY" metoprolol succinate 50 mg tablet extended release 24 hr 50 mg PO DAILY Qty: 30 11RF Rx Instructions: PER PT "RAN OUT, JUST PICKED UP AT PHARMACY" clopidogrel [Plavix] 75 mg tablet 75 mg PO DAILY Qty: 30 11RF Discharge Orders: Discharge Order (Routine); Ordered 10/28/23 Ordered By: Cornelius Cronin Admission Data Admit Date/Time: 10/26/23 19:09 Attending Provider: Cornelius Cronin Admit Provider: Cornelius Saldaña Primary Care Provider: Chelsea Reddy Other Providers: Cornelius Saldaña; Deondre Yusuf Coding Diagnoses Ulcer of left foot L97.529 Left foot infection L08.9 Hypertension I10 Dyslipidemia E78.5 Acid reflux K21.9 Tobacco use Z72.0 Alcohol use Z78.9
== END 2023-10-28 13:38 | disposition home or self-care (01) ==
LOC: 3N 16:46 → ED 16:46 → SUATTDRO 19:09 → 3N 10-27 00:35